=== PATIENT | male | born 1935 | race Caucasian/White ===

== ENCOUNTER 2020-11-28 09:24 | Emergency (ER) | payer BC, MEDICARE ==
--- NOTE | 2020-11-28 10:51 | RAD ---
EXAM: XR Chest 1 View Portable PROVIDED CLINICAL HISTORY: Hypoxia COMPARISON: 02/28/2013 FINDINGS: The cardiac silhouette is prominently enlarged. There is diffuse bilateral interstitial opacity with superimposed patchy airspace disease in the right mid and lower lung zones. Evaluation of the left lung base is limited due to cardiomegaly with left basilar pleural and/or parenchymal opacity not exc luded. Atherosclerosis is demonstrated. There is no evidence for pneumothorax. IMPRESSION: 1. Cardiomegaly. 2. Bilateral lung parenchymal opacities as described. Correlate with concerns for pneumonia. Follow-u p is recommended.
[2020-11-28 10:58] LABS: ALT (SGPT) 17 U/L (8-55); AST (SGOT) 17 U/L (5-34); Albumin 2.9 g/dL (3.4-4.8); Alkaline Phosphatase 80 U/L (40-110); Anion Gap 13 mmol/L (10-20); BUN (Urea Nitrogen) 20 mg/dL (8.4-25.7); Bilirubin, Total 0.6 mg/dL (0.2-1.2); Calc. Creatinine Clearance 0 mL/min (70-130); Calcium 7.6 mg/dL (7.8-10.44); Carbon Dioxide 27 mmol/L (23-31); Chloride 104 mmol/L (98-107); Glucose 98 mg/dL (83-110); Potassium 4.4 mmol/L (3.5-5.1); Protein, Total 5.9 g/dL (5.8-8.1); Sodium 140 mmol/L (136-145)
[2020-11-28] MEDS ORDERED: Haloperidol Lactate 5 MG/ML VIAL ONE (12:18)
[2020-11-28 13:21] LABS: Hemoglobin 14.3 g/dL (14.0-18.0); Mean Corpuscular HGB CONC 32.8 g/dL (32.0-36.0); Mean Corpuscular Volume 91.6 fL (78.0-98.0); Mean Platelet Volume 8.1 fL (7.4-10.4); Platelet Count 201 thou/uL (130-400); RBC Distribution Width 12.9 % (11.5-14.5); Red Blood Cell (RBC) Count 4.77 mill/uL (4.70-6.10); White Blood Cell (WBC) Count 5.6 thou/uL (4.8-10.8)
[2020-11-28 13:46] LABS: Band 14 % (5-11); Lymphocytes 13 % (21-51); MDiff Complete? YES; Monocytes 15 % (0-10); Neutrophil 55 % (42-75); Platelet Morphology Comment Appears Adequate; Polychromasia SLIGHT = 2-3 cells (100X) (0-2/hpf); Reactive Lymphocytes 3 % (0-10)
== END 2020-11-28 17:09 | disposition home or self-care (01) ==
LOC: ERS 09:24
DX: U07.1 COVID-19 (principal); J12.82 Pneumonia due to coronavirus disease 2019; M19.90 Unspecified osteoarthritis, unspecified site; E78.5 Hyperlipidemia, unspecified; J44.9 Chronic obstructive pulmonary disease, unspecified; I10 Essential (primary) hypertension
CPT/HCPCS: 36415; 71045; 80053; 83880; 84484; 85025; 93005; 94760; 96372; J1630

== ENCOUNTER 2022-11-22 12:17 | Outpatient (CLI) | payer MEDICARE, BC | END 2022-11-22 12:18 | disposition home or self-care (01) | LOC: RAD 12:17 | PROVIDERS: ATTEND Family Medicine | DX: R07.9 Chest pain, unspecified (principal); I51.7 Cardiomegaly; I51.9 Heart disease, unspecified | CPT/HCPCS: 93306 ==